=== PATIENT | female | born 1970 | race Caucasian/White ===

== ENCOUNTER 2019-05-06 10:26 | Emergency (ER) | payer SELFPAY ==
[2019-05-06 10:27] VITALS: BP 136/64; PULSE 101; RESP 16; TEMP 36.9; O2SAT 100; BMI 24.1
--- NOTE | 2019-05-06 10:43 | ED.VIS.GEN ---
History of Present Illness Chief Complaint: Dental Informant: Patient Onset: Yesterday Context: Gradual Onset Timing: Continuous Quality: Burning Location: Mouth Current Severity: Severe Maximum Severity: Severe Worsened by: Eating and drinking Relieved by: nothing Associated Symptoms: Denies Narrative: 49-year-old female presents with sores in her mouth from her dentures. Noticed them yesterday. Making it difficult for her to wear her dentures due to pain. No difficulty breathing or swallowing or opening and closing her mouth. No fevers. No vomiting or diarrhea. No trauma. Prior similar symptoms: No Recent Illness/Hospitalization: No Past Medical History - Allergies and Home Meds Allergies/Adverse Reactions: Allergies No Known Allergies Allergy (Verified 05/06/19 10:27) Primary Care Physician: NOT,DEFINED [NON-STAFF] - Prior records reviewed: Yes Past Medical History: None Surgical History: noncontributory Lives: With Family Smoking Status: Former smoker Alcohol: Occasional Review of Systems All systems negative except as indicated General: Denies: Chills, Fever ENT: Reports: - - dental pain. Denies: Sore throat Physical Exam Vital Signs/Narrative: Vital Signs Temp Pulse Resp BP Pulse Ox 05/06/19 10:27 98.4 F 101 H 16 136/64 H 100 Inital Vital Signs reviewed: Yes General: Well nourished, Well developed, No Acute Distress Head: Normocephalic, Atraumatic Eyes: Perrl, EOMI ENT: Moist mucous membranes, - - Patient has stomatitis right side of the mouth gums and cheek. No evidence of abscess. No sublingual edema or trismus. Submental space is soft. Voice is normal. Normal airway. Neck: Supple, Nontender Cardiovascular: Regular rate, Regular rhythm Respiratory: No distress, CTA bilaterally, Chest nontender Abdomen: Soft, Nontender, Nondistended, Normal bowel sounds, No masses Back: Nontender, Normal Inspection Extremities: Nontender, No edema Skin: Normal color, No rash Neurological: Alert, Oriented x3 Psychological: Normal affect Diagnostic/Tx/Re-eval - Medical Decision Making Patient has denture stomatitis. Will prescribe Magic mouthwash. Discussed proper cleansing of dentures and importance of dental follow-up. ED Disposition - Plan for ED Patient: Disposition: Home or Assisted Living Diagnosis: Denture stomatitis Instructions: Aphthous Ulcer Prescriptions: Nystatin 500,000U/5ML [Mycostatin] 5 ml PO 4X/DAY #140 ml Prescription Printed Referrals: NOT,DEFINED [NON-STAFF] - Dentist,Your [STAFF PHYSICIAN] -
[2019-05-06 11:13] VITALS: RESP 18
== END 2019-05-06 11:14 | disposition home or self-care (01) ==
PROVIDERS: Emergency Provider Physician Assistant Medical
DX: K12.1 Other forms of stomatitis (principal); Z87.891 Personal history of nicotine dependence
CPT/HCPCS: 99282